=== PATIENT | female | born 1980 | race Caucasian/White ===

== ENCOUNTER → 2019-07-25 | Outpatient (CLI) | payer BC ==
[~2019-07-25] MED LIST: BUTA1TAB PO; CYCL10TA9 PO; DICY20TA57 PO; DIPH1TAB25 PO; DIVA250T2 PO; HDR2T PO; HYDR-690 PO; HYDR1TAB8 OP; HYDR1TAB8 PO; LRT10T PO; ONDA4TAB8 PO; ONDA8TAB9 PO; PRM25T PO; TPR25T PO; [UNRECOGNIZED DRUG - CODE] PO
--- NOTE | 2019-07-25 11:25 | Diagnostic Imaging Report ---
INDICATION: Left flank pain and hematuria. TECHNIQUE: Multiple contiguous axial images were obtained through the abdomen and pelvis without the use of intravenous contrast. Auto Exposure Controls were utilized during the CT exam to meet ALARA standards for radiation dose reduction. Comparison made with 12/18/2009. The visualized portions of the lung bases are clear. There were no pleural fluid collections. There is no free intraperitoneal air. The liver shows no focal lesions. Gallbladder is absent. The spleen, adrenals and pancreas appear normal. The right kidney appears unremarkable. The left kidney shows moderate hydronephrosis and hydroureter, down to the level of a stone at the left UVJ measuring about 2 to 3 mm in diameter. There is no retroperitoneal mass or adenopathy. There is no ascites or abnormal fluid collection. Visualized bowel loops appear unremarkable. There is an IUD in place in the uterus. IMPRESSION: There is left hydronephrosis and hydroureter of moderate severity, secondary to a 2 to 3 mm stone at the left UVJ. Patient has had previous cholecystectomy. Incidentally, there is an IUD in place in the uterus. Dictated by: Dictated on workstation # [id number]
== END ==
LOC: RAD 10:25
PROVIDERS: ATTEND Family Medicine
DX: Z23 Encounter for immunization (principal); N13.30 Unspecified hydronephrosis; L03.012 Cellulitis of left finger; S61.411A Laceration without foreign body of right hand, initial encounter; G43.009 Migraine without aura, not intractable, without status migrainosus; J16.8 Pneumonia due to other specified infectious organisms; S61.231A Puncture wound without foreign body of left index finger without damage to nail, initial encounter; S61.233A Puncture wound without foreign body of left middle finger without damage to nail, initial encounter; M54.5 Low back pain; W55.01XA Bitten by cat, initial encounter; Z97.5 Presence of (intrauterine) contraceptive device
CPT/HCPCS: 74176

== ENCOUNTER → 2019-11-18 | Outpatient (CLI) | payer BC ==
--- NOTE | 2019-11-18 15:14 | Diagnostic Imaging Report ---
INDICATION: Neck and back pain. COMPARISON: None. FINDINGS: Frontal and lateral views of the thoracic spine were obtained. Visualization of the upper thoracic spine is limited on the lateral projection. Alignment and vertebral heights are maintained. There is no fracture or destructive process. There are no large paraspinal masses. Limited views of the lungs are clear. IMPRESSION: 1. No acute fracture or dislocation of the thoracic spine. Dictated by: Dictated on workstation # [id number]
--- NOTE | 2019-11-18 15:17 | Diagnostic Imaging Report ---
INDICATION: Neck and back pain. COMPARISON: None FINDINGS: Frontal, lateral, and odontoid views of the cervical spine were submitted. The cervical spine is visualized up to the C7/T1 level on the lateral projection. There is normal vertebral height and alignment. There is no evidence of fracture or bone destruction. No prevertebral soft tissue swelling is seen. No significant degenerative changes are noted. The open-mouth view demonstrates normal C1/C2 alignment. IMPRESSION: 1. Normal cervical spine series. Dictated by: Dictated on workstation # [id number]
== END ==
LOC: RAD 14:09
PROVIDERS: ATTEND Nurse Practitioner Family
DX: M54.2 Cervicalgia (principal); M54.6 Pain in thoracic spine
CPT/HCPCS: 72040; 72072

== ENCOUNTER 2020-10-24 13:29 | Outpatient (RCR) | payer BC | END 2020-11-27 | disposition home or self-care (01) | PROVIDERS: ATTEND Family Medicine | DX: M54.2 Cervicalgia (principal); G43.909 Migraine, unspecified, not intractable, without status migrainosus ==

== ENCOUNTER → 2021-04-10 | Outpatient (CLI) | payer BC ==
--- NOTE | 2021-04-10 16:39 | Diagnostic Imaging Report ---
EXAMINATION: Digital mammogram bilateral screening with CAD. INDICATION: Screening. COMPARISON: This study was compared to the prior exam of 03/07/2015. PERSONAL HISTORY: At this time, there are no current complaints. FINDINGS: There are scattered fibroglandular densities in both breasts which could obscure a lesion. Overall, there does not appear to have been any significant change when compared to the prior exam. No primary or secondary sign of malignancy is noted. IMPRESSION: 1. There is no evidence for malignancy. 2. The patient should have her annual bilateral screening mammogram in April 2022. ACR BI-RADS Category 1: Negative. Result letter will be mailed to the patient. Note: At least 10% of breast cancer is not imaged by mammography. Dictated by: Dictated on workstation # [id number]
== END ==
LOC: RAD 15:45
PROVIDERS: ATTEND Obstetrics & Gynecology
DX: Z12.31 Encounter for screening mammogram for malignant neoplasm of breast (principal)
CPT/HCPCS: 77063; 77067

== ENCOUNTER → 2022-03-12 | Outpatient (CLI) | payer BC ==
--- NOTE | 2022-03-12 16:22 | Diagnostic Imaging Report ---
PROCEDURE: MRI lumbar spine. TECHNIQUE: Multiplanar, multisequence MRI of the lumbar spine was performed without contrast. INDICATION: Chronic lower back pain. COMPARISON: None PROCEDURE: MRI lumbar spine. FINDINGS: For the purposes of this exam, last well-formed disc space is noted to be L5-S1 level. Static alignment is maintained. There is no significant anteroretrolisthesis. There is no evidence of jumped facets. Vertebral body heights are maintained. There is no evidence of acute fracture. Marrow signal is normal throughout. Intervertebral disc heights are well-maintained. Visualized portions of distal cord are unremarkable. Conus terminates at approximately the L1 level. No abnormal intrathecal filling defects are seen. Prevertebral and paravertebral soft tissue structures are unremarkable. Axial images show no large disc bulge or focal protrusions. There is no significant spinal canal or neuroforaminal stenosis throughout. IMPRESSION: Unremarkable MRI of the lumbar spine. Dictated by: Dictated on workstation # [id number]
== END ==
LOC: RAD 14:45
PROVIDERS: ATTEND Nurse Practitioner Family
DX: M54.50 Low back pain, unspecified (principal); G89.29 Other chronic pain
CPT/HCPCS: 72148